=== PATIENT | female | born 1980 | race American Indian/Alaskan Native ===

== ENCOUNTER 2017-09-05 21:05 | Emergency (ER) | payer SELFPAY ==
[2017-09-05 21:30] VITALS: BP 120/76
== END 2017-09-06 03:06 | disposition left against medical advice (07) ==
LOC: ED 21:05
DX: Z53.21 Procedure and treatment not carried out due to patient leaving prior to being seen by health care provider (principal)

== ENCOUNTER 2017-11-20 08:48 | Emergency (ER) | payer SELFPAY ==
[2017-11-20 10:35] VITALS: BP 107/48
== END 2017-11-20 11:11 | disposition left against medical advice (07) ==
LOC: ED 08:48
DX: N89.8 Other specified noninflammatory disorders of vagina (principal); Z53.21 Procedure and treatment not carried out due to patient leaving prior to being seen by health care provider

== ENCOUNTER 2019-01-22 09:07 | Emergency (ER) | payer OTHER ==
--- NOTE | 2019-01-22 10:12 | Emergency Department Report ---
Minor Respiratory - HPI Chief Complaint: Sore Throat Stated Complaint: SORE THROAT/TROUBLE SWALLOWING/COUGH Time Seen by Provider: 01/22/19 10:01 Duration: 3 Days Pain Location: Throat Severity: mild Minor Respiratory: Yes Sore Throat, Yes Able to Tolerate Fluids, Yes Sick Contacts, No Rhinorrhea, No Ear Pain, No Cough, No Hemoptysis, No Chest Pain, No Shortness of Breath, No Fever Other History: Patient is a 38-year-old female comes to the ER today complaining of sore throat. She has a daughter has same symptoms. Patient states that she' s been ill since Monday and had intermittent fever since. She has no fever here and admission to the emergency room. Patient is otherwise healthy and on no medications. Patient's ABCs are intact. She is taking by mouth. Patient controls secretions. ED Review of Systems ROS: Stated complaint: SORE THROAT/TROUBLE SWALLOWING/COUGH Other details as noted in HPI Comment: All other systems reviewed and negative Constitutional: see HPI. denies: chills Eyes: denies: eye pain ENT: as per HPI, throat pain Respiratory: denies: cough Cardiovascular: denies: chest pain Endocrine: denies: excessive sweating Gastrointestinal: denies: nausea Genitourinary: denies: urgency Musculoskeletal: denies: as per HPI Skin: denies: rash Neurological: denies: weakness Psychiatric: denies: anxiety Hematological/Lymphatic: denies: easy bleeding ED Past Medical Hx - Past Medical History Previous Medical History?: No - Surgical History Past Surgical History?: No Additional Surgical History: - Family History Family history: no significant - Social History Smoking Status: Never Smoker Substance Use Type: None - Medications Home Medications: Home Medications Medication Instructions Recorded Confirmed Last Taken Type Amoxicillin [Trimox CAP] 500 mg PO BID #20 capsule 01/22/19 Unknown Rx Cetirizine HCl [ZyrTEC] 10 mg PO DAILY #30 capsule 01/22/19 Unknown Rx Minor Respiratory Exam - Exam General: Vital signs noted. No distress. Alert and acting appropriately. HEENT: Yes Pharyngeal Erythema, Yes Moist Mucous Membranes, No Pharyngeal Exudates, No Rhinorrhea, No Conjuctival Injection, No Frontal Tenderness, No Maxillary Tenderness Ear: Neither TM Bulge, Neither TM Erythema, Neither EAC Pain, Neither EAC Discharge Neck: Yes Supple, No Adenopathy Lungs: Yes Good Air Exchange, No Wheezes, No Ronchi, No Stridor, No Cough, No Labored Respirations, No Retractions, No Use of Accessory Muscles, No Other Abnormal Lung Sounds Heart: Yes Regular, No Murmur Abdomen: Yes Normal Bowel Sounds, No Tenderness, No Peritoneal Signs Skin: No Rash, No Edema Neurologic: Alert and oriented, no deficits. Musculoskeletal: Unremarkable. ED Course Vital Signs 01/22/19 09:16 Temperature 98.4 F Pulse Rate 58 L Respiratory 18 Rate Blood Pressure 114/57 O2 Sat by Pulse 100 Oximetry ED Medical Decision Making - Medical Decision Making simple urti red throat post nasal drip no fever at present abc intact taking po dc home with dc poc Vital Signs (72 hours) 01/22/19 09:16 Temperature 98.4 F Pulse Rate 58 L Respiratory 18 Rate Blood Pressure 114/57 O2 Sat by Pulse 100 Oximetry Critical care attestation.: If time is entered above; I have spent that time in minutes in the direct care of this critically ill patient, excluding procedure time. ED Disposition Clinical Impression: Pharyngitis, Allergic rhinitis Disposition: DC-01 TO HOME OR SELFCARE Is pt being admited?: No Does the pt Need Aspirin: No Condition: Stable Instructions: Pharyngitis (ED) Additional Instructions: DIET TOLERATED MEDS ORDERED FOLLOW UP PCP ACTIVITY TOLERATED MOTRIN OR TYLENOL FOR PAIN OR FEVER Referrals: [facility] [Outside] - 3-5 Days Time of Disposition: 10:11
[2019-01-22 10:37] VITALS: BP 110/60
== END 2019-01-22 10:36 | disposition home or self-care (01) ==
LOC: ED 09:07
DX: J02.9 Acute pharyngitis, unspecified (principal); J30.9 Allergic rhinitis, unspecified
CPT/HCPCS: 99282

== ENCOUNTER 2019-04-11 10:14 | Emergency (ER) | payer OTHER ==
[2019-04-11 10:30] VITALS: BP 113/69
--- NOTE | 2019-04-11 11:32 | Emergency Department Report ---
ED Female HPI - General Chief complaint: Skin Rash Stated complaint: RASH ON BACK/CHEST Source: patient Mode of arrival: Ambulatory Limitations: No Limitations - History of Present Illness Initial comments: This is a 38-year-old female who presents to the emergency room with vaginal discharge that has been intermittent for 3 months. Patient reports the discharge is foul smelling and cause pruritus or vaginal area. Patient states she has tried Monistat which increased symptoms after use. Patient states she is not concerned in STI because she is not sexually active for the past 1-1/2 years. He should also reports a rash to anterior and posterior torso for the past 2-3 years that has been intermittent. Patient states she just got insurance then called to make an appointment with the shotblast equipment operator and was unable to get an appointment. She denies pelvic pain, back pain, urinary frequency, urgency, dysuria, or hematuria. MD Complaint: vaginal discharge Onset/Timin -: month(s) Location: labia Radiation: non-radiating Severity: mild Severity scale (0 -10): 3 Quality: other (pruritus) Consistency: intermittent Improves with: none Worsens with: none Are you Now?: No Last Menstrual Period: 04/01/19 EDC: 01/06/20 Associated Symptoms: vaginal discharge. denies: vaginal bleeding, abdominal pain, nausea/vomiting, fever/chills, headaches, loss of appetite, dysuria, hematuria, rash, seizure, shortness of breath, syncope, weakness - Related Data Sexually active: No Previous Rx's Medication Instructions Recorded Last Taken Type Amoxicillin [Trimox CAP] 500 mg PO BID #20 capsule 01/22/19 Unknown Rx Cetirizine HCl [ZyrTEC] 10 mg PO DAILY #30 capsule 01/22/19 Unknown Rx methylPREDNISolone [Medrol 4MG 4 mg PO DAILY #1 tab.ds.pk 04/11/19 Unknown Rx DOSEPAK (21 tabs)] metroNIDAZOLE [Flagyl TAB] 2 gm PO ONCE #4 tab 04/11/19 Unknown Rx Allergies Allergy/AdvReac Type Severity Reaction Status Date / Time No Known Allergies Allergy Unverified 09/05/17 21:30 ED Review of Systems ROS: Stated complaint: RASH ON BACK/CHEST Other details as noted in HPI Constitutional: denies: chills, fever Respiratory: denies: cough, shortness of breath, wheezing Cardiovascular: denies: chest pain, palpitations Gastrointestinal: denies: abdominal pain, nausea, diarrhea Genitourinary: discharge. denies: urgency, dysuria, hematuria Musculoskeletal: denies: back pain, joint swelling, arthralgia Skin: denies: rash, lesions Neurological: denies: headache, weakness, paresthesias Psychiatric: denies: anxiety, depression ED Past Medical Hx - Past Medical History Previous Medical History?: No - Surgical History Past Surgical History?: Yes Additional Surgical History: - Social History Smoking Status: Current Every Day Smoker Substance Use Type: None - Medications Home Medications: Home Medications Medication Instructions Recorded Confirmed Last Taken Type Amoxicillin [Trimox CAP] 500 mg PO BID #20 capsule 01/22/19 Unknown Rx Cetirizine HCl [ZyrTEC] 10 mg PO DAILY #30 capsule 01/22/19 Unknown Rx methylPREDNISolone [Medrol 4MG 4 mg PO DAILY #1 tab.ds.pk 04/11/19 Unknown Rx DOSEPAK (21 tabs)] metroNIDAZOLE [Flagyl TAB] 2 gm PO ONCE #4 tab 04/11/19 Unknown Rx ED Physical Exam - General Limitations: No Limitations General appearance: alert, in no apparent distress, obese - Respiratory Respiratory exam: Present: normal lung sounds bilaterally. Absent: respiratory distress - Cardiovascular Cardiovascular Exam: Present: regular rate, normal rhythm. Absent: systolic murmur, diastolic murmur, rubs, gallop - GI/Abdominal GI/Abdominal exam: Present: soft, normal bowel sounds. Absent: distended, tenderness, guarding, rebound, rigid, organomegaly, mass - External exam: Present: normal external exam Speculum exam: Present: vaginal discharge (malodorous frothy greenish yellow discharge). Absent: cervical discharge, vaginal bleeding, foreign body, tissue, laceration Bi-manual exam: Present: normal bi-manual exam - Back Exam Back exam: Absent: CVA tenderness (R), CVA tenderness (L) - Neurological Exam Neurological exam: Present: alert, oriented X3 - Psychiatric Psychiatric exam: Present: normal affect, normal mood - Skin Skin exam: Present: warm, dry, intact, normal color, rash (maculopapular rash to anterior and posterior torso, blanchable). Absent: cyanosis, diaphoretic, erythema, urticaria, vesicles, petechiae, pallor, abrasion, ecchymosis ED Course Vital Signs 04/11/19 10:28 Temperature 98.3 F Pulse Rate 70 Respiratory 18 Rate Blood Pressure 113/69 O2 Sat by Pulse 100 Oximetry ED Medical Decision Making - Lab Data Lab Results 04/11/19 Range/Units 11:17 Urine Color Yellow (Yellow) Urine Turbidity Clear (Clear) Urine pH 5.0 (5.0-7.0) Ur Specific [place] 1.020 (1.003-1.030) Urine Protein <15 mg/dl (Negative) mg/dL Urine Glucose (UA) Neg (Negative) mg/dL Urine Ketones Neg (Negative) mg/dL Urine Blood Mod (Negative) Urine Nitrite Neg (Negative) Urine Bilirubin Neg (Negative) Urine Urobilinogen < 2.0 (<2.0) mg/dL Ur Leukocyte Esterase Neg (Negative) Urine WBC (Auto) 2.0 (0.0-6.0) /HPF Urine RBC (Auto) 6.0 (0.0-6.0) /HPF U Epithel Cells (Auto) 1.0 (0-13.0) /HPF Urine Mucus Few /HPF - Medical Decision Making Patient was examined by me. Vitals are stable and in no acute distress. Obtained a wet prep, gonorrhea and chlamydia, urinalysis, and urine test. The wet was positive for Trichomonas, negative yeast and clue cells. Patient will be treated for acute cervicitis. Empirically treated with Rocephin 250 mg IM and azithromycin 1 g by mouth. There is a maculopapular rash to anterior and posterior torso with suspicion of contact dermatitis of unknown cause. A referral to automatic pilot mechanic will be given to patient. Start metronidazole and Medrol Dosepak. Discharged home in stable condition. Discussed prevention options. F/U with PCP or Health Department. Critical care attestation.: If time is entered above; I have spent that time in minutes in the direct care of this critically ill patient, excluding procedure time. ED Disposition Clinical Impression: Acute cervicitis, Trichomoniasis of vagina, Vaginal discharge Contact dermatitis Qualifiers: Contact dermatitis type: allergic Contact dermatitis trigger: unspecified trigger Qualified Code(s): L23.9 - Allergic contact dermatitis, unspecified cause Disposition: - TO HOME OR SELFCARE Is pt being admited?: No Does the pt Need Aspirin: No Condition: Stable Instructions: Cervicitis (ED), Trichomoniasis (ED), Contact Dermatitis (ED) Additional Instructions: Avoid drinking alcohol while taking antibiotics and for 24 hours after completion. Continue safe sexual intercourse. I have provided you a referral to a automatic pilot mechanic for further evaluation. Follow up with Primary Care Provider or health department. Prescriptions: metroNIDAZOLE [Flagyl TAB] 2 gm PO ONCE #4 tab methylPREDNISolone [Medrol 4MG DOSEPAK (21 tabs)] 4 mg PO DAILY #1 tab.ds.pk Referrals: [facility] [Provider Group] - 3-5 Days [facility] [Primary Care Provider] - 3-5 Days [facility] [Provider Group] - 3-5 Days Forms: STI Treatment and Prevention Time of Disposition: 12:28
[2019-04-11 11:52] LABS: Bilirubin,Urine NEG (Negative); Blood,Urine MOD (Negative); Color,Urine Yellow (Yellow); Mucus,Urine FEW /HPF; Protein,Urine <15 mg/dL mg/dL (Negative); Urobilinogen,Urine < 2.0 mg/dL (<2.0)
[2019-04-11] MEDS ORDERED: ROCEPHIN IM ONE (12:27)
[2019-04-11] MEDS ORDERED: XYLOCAINE 1% MPF 5 mL INFILTRATI ONE (12:27)
[2019-04-11] MEDS ORDERED: ZITHROMAX PO ONE (12:28)
== END 2019-04-11 13:01 | disposition home or self-care (01) ==
LOC: ED 10:14
DX: N72 Inflammatory disease of cervix uteri (principal); A59.01 Trichomonal vulvovaginitis; L23.9 Allergic contact dermatitis, unspecified cause; F17.200 Nicotine dependence, unspecified, uncomplicated
CPT/HCPCS: 81001; 87210; 87591; J0696; 96372

== ENCOUNTER 2019-06-10 10:25 | Emergency (ER) | payer OTHER ==
[2019-06-10 10:38] VITALS: BP 124/68
[2019-06-10] MEDS ORDERED: IBUPROFEN PO ONE (11:55)
--- NOTE | 2019-06-10 12:16 | Emergency Department Report ---
ED General Adult HPI - General Chief complaint: Weakness Stated complaint: STREP THROAT Time Seen by Provider: 06/10/19 11:39 Source: patient Mode of arrival: Ambulatory Limitations: No Limitations - History of Present Illness Initial comments: 39-year-old -[place] female presents to the emergency room stating that she just feels weak having nasal congestion chest pain with cough and has not had much of an appetite in the last 2 days. Patient reports that she had a sore throat yesterday but none today. Patient's last menstrual. Was 06/02/2019. Patient has no past medical history. Onset/Timin Location: chest Radiation: non-radiation Severity scale (0 -10): 6 Consistency: intermittent Improves with: none Worsens with: other (coughing) Associated Symptoms: cough, loss of appetite, weakness, other (vital congestion chest congestion). denies: fever/chills, nausea/vomiting - Related Data Previous Rx's Medication Instructions Recorded Last Taken Type Amoxicillin [Trimox CAP] 500 mg PO BID #20 capsule 01/22/19 Unknown Rx Cetirizine HCl [ZyrTEC] 10 mg PO DAILY #30 capsule 01/22/19 Unknown Rx methylPREDNISolone [Medrol 4MG 4 mg PO DAILY #1 tab.ds.pk 04/11/19 Unknown Rx DOSEPAK (21 tabs)] metroNIDAZOLE [Flagyl TAB] 2 gm PO ONCE #4 tab 04/11/19 Unknown Rx Cetirizine HCl [Zyrtec 10mg tab] 10 mg PO QDAY #15 tablet 06/10/19 Unknown Rx Fluticasone Furoate [Flonase 9.9 ml NS QDAY #1 spray.susp 06/10/19 Unknown Rx Sensimist] Phenylephrine HCl [Sudafed PE] 10 mg PO Q6H PRN #20 tablet 06/10/19 Unknown Rx Allergies Allergy/AdvReac Type Severity Reaction Status Date / Time No Known Allergies Allergy Unverified 09/05/17 21:30 ED Review of Systems ROS: Stated complaint: STREP THROAT Other details as noted in HPI Comment: All other systems reviewed and negative ENT: throat pain (yesterday) Respiratory: cough ED Past Medical Hx - Past Medical History Previous Medical History?: No Hx Hypertension: No - Surgical History Past Surgical History?: Yes Additional Surgical History: - Social History Smoking Status: Never Smoker Substance Use Type: None - Medications Home Medications: Home Medications Medication Instructions Recorded Confirmed Last Taken Type Amoxicillin [Trimox CAP] 500 mg PO BID #20 capsule 01/22/19 Unknown Rx Cetirizine HCl [ZyrTEC] 10 mg PO DAILY #30 capsule 01/22/19 Unknown Rx methylPREDNISolone [Medrol 4MG 4 mg PO DAILY #1 tab.ds.pk 04/11/19 Unknown Rx DOSEPAK (21 tabs)] metroNIDAZOLE [Flagyl TAB] 2 gm PO ONCE #4 tab 04/11/19 Unknown Rx Cetirizine HCl [Zyrtec 10mg tab] 10 mg PO QDAY #15 tablet 06/10/19 Unknown Rx Fluticasone Furoate [Flonase 9.9 ml NS QDAY #1 spray.susp 06/10/19 Unknown Rx Sensimist] Phenylephrine HCl [Sudafed PE] 10 mg PO Q6H PRN #20 tablet 06/10/19 Unknown Rx ED Physical Exam - General Limitations: No Limitations ED Course Vital Signs 06/10/19 10:37 Temperature 98.4 F Pulse Rate 79 Respiratory 16 Rate Blood Pressure 124/68 [Left] O2 Sat by Pulse 100 Oximetry ED Medical Decision Making - Radiology Data Radiology results: report reviewed Patient: LAKESHA COOK MR#: [id number] : 1980 Acct:[id number] Age/Sex: 39 / F ADM Date: 06/10/19 Loc: ED Attending Dr: Ordering Physician: AUDRA SHARIF Date of Service: 06/10/19 Procedure(s): XR chest routine 2V Accession Number(s): [id number] cc: AUDRA SHARIF Fluoro Time In Minutes: CHEST 2 VIEWS INDICATION / CLINICAL INFORMATION: cough and weakness. COMPARISON: None available. FINDINGS: SUPPORT DEVICES: None. HEART / MEDIASTINUM: No significant abnormality. LUNGS / PLEURA: No significant pulmonary or pleural abnormality. No pneumothorax. ADDITIONAL FINDINGS: No significant additional findings. IMPRESSION: 1. No acute findings. Signer Name: Alberto Hope MD Signed: 06/10/2019 12:51 PM Workstation Name: [id number] Transcribed By: GA Dictated By: Alberto Hope MD Electronically Authenticated By: Alberto Hope MD Signed Date/Time: 06/10/191250 DD/ 50 TD/TT: - Medical Decision Making 39-year-old -[place] female presents to the emergency room stating that she just feels weak having nasal congestion chest pain with cough and has not had much of an appetite in the last 2 days. Patient reports that she had a sore throat yesterday but none today. Patient's last menstrual. Was 06/02/2019. Patient has no past medical history. X-rays are negative for any acute findings. These take [id number] Zyrtec Flonase and Sudafed. Critical care attestation.: If time is entered above; I have spent that time in minutes in the direct care of this critically ill patient, excluding procedure time. ED Disposition Clinical Impression: Viral syndrome Disposition: DC-01 TO HOME OR SELFCARE Is pt being admited?: No Does the pt Need Aspirin: No Condition: Stable Instructions: Viral Syndrome (ED) Additional Instructions: Chest x-ray negative for any acute abnormalities. Take medications as prescribed. Increase her fluid intake while taking medications. Follow up with her primary care provider if his symptoms persist or gets worse. Prescriptions: Fluticasone Furoate [Flonase Sensimist] 9.9 ml NS QDAY #1 spray.susp Phenylephrine HCl [Sudafed PE] 10 mg PO Q6H PRN #20 tablet PRN Reason: Nasal Congestion Cetirizine HCl [Zyrtec 10mg tab] 10 mg PO QDAY #15 tablet Referrals: [facility] [Other] - 3-5 Days Forms: Work/School Release Form(ED)
--- NOTE | 2019-06-10 12:56 | XRay Report ---
CHEST 2 VIEWS INDICATION / CLINICAL INFORMATION: cough and weakness. COMPARISON: None available. FINDINGS: SUPPORT DEVICES: None. HEART / MEDIASTINUM: No significant abnormality. LUNGS / PLEURA: No significant pulmonary or pleural abnormality. No pneumothorax. ADDITIONAL FINDINGS: No significant additional findings. IMPRESSION: 1. No acute findings. Signer Name: Alberto Hope MD Signed: 06/10/2019 12:51 PM Workstation Name: [id number]
== END 2019-06-10 13:34 | disposition home or self-care (01) ==
LOC: ED 10:25
DX: B34.9 Viral infection, unspecified (principal); Z79.899 Other long term (current) drug therapy
CPT/HCPCS: 71046

== ENCOUNTER 2022-03-26 13:24 | Emergency (ER) | payer OTHER ==
--- NOTE | 2022-03-26 14:57 | Emergency Department Report ---
HPI - General Chief Complaint: Altered Mental Status Time Seen by Provider: 03/26/22 14:04 - HPI HPI: Room 22 Patient is a 41-year-old female presenting with a chief complaint of altered mental status. Patient was initially found vomiting in her car by bystanders. EMS was called and reportedly found the patient unresponsive. Patient was administered Narcan 2 mg by EMS but there is no response from the patient. The patient was found to be bradycardic with heart rate in 30s and subsequently the patient was administered 0.5 mg of atropine prior to transporting the patient to the ED. In the ED the patient is slow to respond but answers questions appropriately. Patient states he has had an intermittent diffuse headache for the past 2 weeks. Patient denies any preceding trauma. The patient states she remembers having cramping in her hands and face while she was in her car. Patient denies suicidal ideation, patient denies history of cough, shortness of breath or sneezing. Patient states she tested positive for COVID 3 days ago. The patient states her daughter was initially sick with COVID. ED Past Medical Hx - Past Medical History Previous Medical History?: No - Surgical History Additional Surgical History: - Family History Family history: no significant - Social History Smoking Status: Current Every Day Smoker (1/4 pack/day) Substance Use Type: None (Denies illicit drug use) - Medications Home Medications: Home Medications Medication Instructions Recorded Confirmed Last Taken Type Amoxicillin [Trimox CAP] 500 mg PO BID #20 capsule 01/22/19 Unknown Rx Cetirizine HCl [ZyrTEC] 10 mg PO DAILY #30 capsule 01/22/19 Unknown Rx methylPREDNISolone [Medrol 4MG 4 mg PO DAILY #1 tab.ds.pk 04/11/19 Unknown Rx DOSEPAK (21 tabs)] metroNIDAZOLE [Flagyl TAB] 2 gm PO ONCE #4 tab 04/11/19 Unknown Rx Cetirizine HCl [Zyrtec 10mg tab] 10 mg PO QDAY #15 tablet 06/10/19 Unknown Rx Fluticasone Furoate [Flonase 9.9 ml NS QDAY #1 spray.susp 06/10/19 Unknown Rx Sensimist] Phenylephrine HCl [Sudafed PE] 10 mg PO Q6H PRN #20 tablet 06/10/19 Unknown Rx Butalb/Acetamin/Caff 50-325-40 2 tab PO Q8HR PRN #20 tablet 03/26/22 Unknown Rx [Fioricet 50-325-40] Ondansetron [Zofran ODT TAB] 8 mg PO Q8HR #20 tab.rapdis 03/26/22 Unknown Rx ED Review of Systems ROS: Stated complaint: UNRESPONSIVE Other details as noted in HPI Constitutional: no symptoms reported Eyes: denies: eye pain ENT: denies: throat pain Respiratory: denies: cough, shortness of breath Cardiovascular: denies: chest pain Endocrine: no symptoms reported Gastrointestinal: nausea, vomiting Genitourinary: denies: dysuria Musculoskeletal: denies: back pain Neurological: headache Physical Exam - Physical Exam Vital Signs: Vital Signs 03/26/22 13:45 Pulse Rate 66 Respiratory 16 Rate Blood Pressure 132/60 [Left] O2 Sat by Pulse 98 Oximetry Physical Exam: GENERAL: The patient is well-developed well-nourished female lying on stretcher, slow to respond but answers. [] HEENT: Normocephalic. Atraumatic. Extraocular motions are intact. Patient has moist mucous membranes. NECK: Supple. No meningitic signs are noted. Trachea midline CHEST/LUNGS: Clear to auscultation. There is no respiratory distress noted. HEART/CARDIOVASCULAR: Regular. There is no tachycardia. There is no gallop rub or murmur. ABDOMEN: Abdomen is soft, nontender. Patient has normal bowel sounds. There is no abdominal distention. SKIN: There is no rash. There is no edema. There is no diaphoresis. NEURO: The patient is awake, alert, and oriented. The patient is cooperative. The patient has no focal neurologic deficits. The patient has normal speech. Cranial nerves II through XII grossly intact. MUSCULOSKELETAL: There is no evidence of acute injury. ED Course Vital Signs 03/26/22 13:45 Pulse Rate 66 Respiratory 16 Rate Blood Pressure 132/60 [Left] O2 Sat by Pulse 98 Oximetry - Reevaluation(s) Reevaluation #1: 03/26/22 18:26 Patient alert and oriented x4. Patient states she has been having daily headaches for the past 2 to 3 months but has not yet followed up with her primary physician. The patient states today she recalls having a headache and c ramping in her face and hands and her next memory is waking up in her car in the emergency department. Patient states she feels a lot better now but still has a headache and gives a score of 6/10. ED Medical Decision Making - Lab Data Result diagrams: 03/26/22 15:06 03/26/22 15:06 Laboratory Tests 03/26/22 03/26/22 03/26/22 15:06 15:06 15:06 WBC 8.8 RBC 4.37 Hgb 14.2 Hct 41.9 MCV 96 MCH 33 H MCHC 34 RDW 12.8 L Plt Count 159 Lymph % (Auto) 8.0 L [place] % (Auto) 7.3 Eos % (Auto) 0.0 Baso % (Auto) 0.2 Lymph # (Auto) 0.7 L [place] # (Auto) 0.6 Eos # (Auto) 0.0 Baso # (Auto) 0.0 Seg Neutrophils % 84.5 H Seg Neutrophils # 7.4 PT 13.6 INR 0.94 APTT 26.5 Sodium 139 Potassium 3.1 L Chloride 100.0 Carbon Dioxide 25 Anion Gap 17 BUN 15 Creatinine 0.6 Estimated GFR > 60 BUN/Creatinine Ratio 25 Glucose 118 H Calcium 9.6 Total Bilirubin 1.00 AST 25 ALT 19 Alkaline Phosphatase 57 Ammonia Total Creatine Kinase CK-MB (CK-2) CK-MB (CK-2) Rel Index Troponin T Total Protein 7.8 Albumin 4.5 Albumin/Globulin Ratio 1.4 TSH Free T4 HCG, Qual Urine Color Urine Turbidity Urine pH Ur Specific [place] Urine Protein Urine Glucose (UA) Urine Ketones Urine Blood Urine Nitrite Urine Bilirubin Urine Urobilinogen Ur Leukocyte Esterase Urine WBC (Auto) Urine RBC (Auto) U Epithel Cells (Auto) Urine Mucus Urine Yeast (Budding) Salicylates Urine Opiates Screen Urine Methadone Screen Acetaminophen Ur Barbiturates Screen Ur Phencyclidine Scrn Ur Amphetamines Screen U Benzodiazepines Scrn Urine Cocaine Screen Plasma/Serum Alcohol 03/26/22 03/26/22 03/26/22 15:06 15:06 15:06 WBC RBC Hgb Hct MCV MCH MCHC RDW Plt Count Lymph % (Auto) [place] % (Auto) Eos % (Auto) Baso % (Auto) Lymph # (Auto) [place] # (Auto) Eos # (Auto) Baso # (Auto) Seg Neutrophils % Seg Neutrophils # PT INR APTT Sodium Potassium Chloride Carbon Dioxide Anion Gap BUN Creatinine Estimated GFR BUN/Creatinine Ratio Glucose Calcium Total Bilirubin AST ALT Alkaline Phosphatase Ammonia 18.0 L Total Creatine Kinase 271 H CK-MB (CK-2) 3.7 CK-MB (CK-2) Rel Index 1.3 Troponin T < 0.010 Total Protein Albumin Albumin/Globulin Ratio TSH 0.946 Free T4 1.60 H HCG, Qual Urine Color Urine Turbidity Urine pH Ur Specific [place] Urine Protein Urine Glucose (UA) Urine Ketones Urine Blood Urine Nitrite Urine Bilirubin Urine Urobilinogen Ur Leukocyte Esterase Urine WBC (Auto) Urine RBC (Auto) U Epithel Cells (Auto) Urine Mucus Urine Yeast (Budding) Salicylates Urine Opiates Screen Urine Methadone Screen Acetaminophen Ur Barbiturates Screen Ur Phencyclidine Scrn Ur Amphetamines Screen U Benzodiazepines Scrn Urine Cocaine Screen Plasma/Serum Alcohol 03/26/22 03/26/22 03/26/22 15:06 15:06 15:06 WBC RBC Hgb Hct MCV MCH MCHC RDW Plt Count Lymph % (Auto) [place] % (Auto) Eos % (Auto) Baso % (Auto) Lymph # (Auto) [place] # (Auto) Eos # (Auto) Baso # (Auto) Seg Neutrophils % Seg Neutrophils # PT INR APTT Sodium Potassium Chloride Carbon Dioxide Anion Gap BUN Creatinine Estimated GFR BUN/Creatinine Ratio Glucose Calcium Total Bilirubin AST ALT Alkaline Phosphatase Ammonia Total Creatine Kinase CK-MB (CK-2) CK-MB (CK-2) Rel Index Troponin T Total Protein Albumin Albumin/Globulin Ratio TSH Free T4 HCG, Qual Negative Urine Color Urine Turbidity Urine pH Ur Specific [place] Urine Protein Urine Glucose (UA) Urine Ketones Urine Blood Urine Nitrite Urine Bilirubin Urine Urobilinogen Ur Leukocyte Esterase Urine WBC (Auto) Urine RBC (Auto) U Epithel Cells (Auto) Urine Mucus Urine Yeast (Budding) Salicylates < 0.3 L Urine Opiates Screen Urine Methadone Screen Acetaminophen 5.0 L Ur Barbiturates Screen Ur Phencyclidine Scrn Ur Amphetamines Screen U Benzodiazepines Scrn Urine Cocaine Screen Plasma/Serum Alcohol 03/26/22 03/26/22 03/26/22 15:06 16:21 16:21 WBC RBC Hgb Hct MCV MCH MCHC RDW Plt Count Lymph % (Auto) [place] % (Auto) Eos % (Auto) Baso % (Auto) Lymph # (Auto) [place] # (Auto) Eos # (Auto) Baso # (Auto) Seg Neutrophils % Seg Neutrophils # PT INR APTT Sodium Potassium Chloride Carbon Dioxide Anion Gap BUN Creatinine Estimated GFR BUN/Creatinine Ratio Glucose Calcium Total Bilirubin AST ALT Alkaline Phosphatase Ammonia Total Creatine Kinase CK-MB (CK-2) CK-MB (CK-2) Rel Index Troponin T Total Protein Albumin Albumin/Globulin Ratio TSH Free T4 HCG, Qual Urine Color [place] Urine Turbidity Cloudy Urine pH 5.0 Ur Specific [place] 1.031 H Urine Protein 100 mg/dl Urine Glucose (UA) 50 Urine Ketones 80 Urine Blood Sm Urine Nitrite Neg Urine Bilirubin Neg Urine Urobilinogen 4.0 Ur Leukocyte Esterase Neg Urine WBC (Auto) 8.0 H Urine RBC (Auto) 9.0 U Epithel Cells (Auto) 5.0 Urine Mucus 3+ Urine Yeast (Budding) Few Salicylates Urine Opiates Screen Negative Urine Methadone Screen Negative Acetaminophen Ur Barbiturates Screen Negative Ur Phencyclidine Scrn Negative Ur Amphetamines Screen Negative U Benzodiazepines Scrn Negative Urine Cocaine Screen Negative Plasma/Serum Alcohol < 0.01 - EKG Data -: EKG Interpreted by Ne EKG shows normal: sinus rhythm, axis Rate: normal - EKG Data When compared to previous EKG there are: previous EKG unavailable Interpretation: normal EKG - Radiology Data Radiology results: report reviewed (CT head), image reviewed (CT head) [facility] [address] [place] [address] Cat Scan Report Signed Patient: LAKESHA COOK MR#: [id number] : 1980 Acct:[id number] Age/Sex: 41 / F ADM Date: 03/26/22 Loc: ED Attending Dr: Ordering Physician: NOLBERTO CORDOBA MD Date of Service: 03/26/22 Procedure(s): CT head/brain wo con Accession Number(s): [id number] cc: NOLBERTO CORDOBA MD CT HEAD WITHOUT CONTRAST INDICATION / CLINICAL INFORMATION: Altered Mental Status, Headache. TECHNIQUE: All CT scans at this location are performed using CT dose reduction for ALARA by means of automated exposure control. COMPARISON: None available. FINDINGS: HEMORRHAGE: None. EXTRA-AXIAL SPACES: Normal in size and morphology for the patient's age. VENTRICULAR SYSTEM: Normal in size and morphology for the patient's age. CEREBRAL PARENCHYMA: No significant abnormality. No acute territorial infarct. MIDLINE SHIFT / HERNIATION: None. CEREBELLUM / BRAINSTEM: No significant abnormality. ORBITS: Normal as visualized. SOFT TISSUES: No significant abnormality. SKULL: No significant abnormality. PARANASAL SINUSES / MASTOID AIR CELLS: Normal as visualized. AD DITIONAL FINDINGS: None. IMPRESSION: 1. No acute intracranial abnormality. Signer Name: Catrachito Noel MD Signed: 03/26/2022 3:01 PM Workstation Name: [id number] Transcribed By: DT Dictated By: Jose De Jesus Noel MD Electronically Authenticated By: Jose De Jesus Noel MD Signed Date/Time: 03/26/22 1501 DD/ 1500 TD/TT: - Differential Diagnosis ICH, headache, migraine, substance abuse, metabolic encephalopathy, COVID Critical care attestation.: If time is entered above; I have spent that time in minutes in the direct care of this critically ill patient, excluding procedure time. ED Disposition Clinical Impression: Headache, Vasovagal syncope, Hypokalemia Disposition: 01 HOME / SELF CARE / HOMELESS Is pt being admited?: No Does the pt Need Aspirin: No Condition: Stable Instructions: Syncope (ED), Hypokalemia, Syncope, [id number], General Head ache Without Cause, [id number] Additional Instructions: Return to the emergency department should you develop worsening symptoms, inability to tolerate food or liquids, high fever or any other concerns Prescriptions: Butalb/Acetamin/Caff 50-325-40 [Fioricet 50-325-40] 2 tab PO Q8HR PRN #20 tablet PRN Reason: Headache Ondansetron [Zofran ODT TAB] 8 mg PO Q8HR #20 tab.rapdis Referrals: SUMIT WHITT [Other] - 3-5 Days Time of Disposition: 18:28
--- NOTE | 2022-03-26 15:06 | Cat Scan Report ---
CT HEAD WITHOUT CONTRAST INDICATION / CLINICAL INFORMATION: Altered Mental Status, Headache. TECHNIQUE: All CT scans at this location are performed using CT dose reduction for ALARA by means of automated exposure control. COMPARISON: None available. FINDINGS: HEMORRHAGE: None. EXTRA-AXIAL SPACES: Normal in size and morphology for the patient's age. VENTRICULAR SYSTEM: Normal in size and morphology for the patient's age. CEREBRAL PARENCHYMA: No significant abnormality. No acute territorial infarct. MIDLINE SHIFT / HERNIATION: None. CEREBELLUM / BRAINSTEM: No significant abnormality. ORBITS: Normal as visualized. SOFT TISSUES: No significant abnormality. SKULL: No significant abnormality. PARANASAL SINUSES / MASTOID AIR CELLS: Normal as visualized. ADDITIONAL FINDINGS: None. IMPRESSION: 1. No acute intracranial abnormality. Signer Name: Catrachito Noel MD Signed: 03/26/2022 3:01 PM Workstation Name: [id number]
[2022-03-26 15:43] LABS: Basophils % (Auto) 0.2 % (0.0-1.8); Hematocrit 41.9 % (30.3-42.9); Hemoglobin 14.2 gm/dl (10.1-14.3); Lymphocytes # (Auto) 0.7 K/mm3 (1.2-5.4); Mean Corpuscular HGB Conc 34 % (30-34); Mean Corpuscular Volume 96 fl (79-97); Monocytes # (Auto) 0.6 K/mm3 (0.0-0.8); Monocytes % (Auto) 7.3 % (0.0-7.3); Platelet Count 159 K/mm3 (140-440); Red Blood Count 4.37 M/mm3 (3.65-5.03); Red Cell Distribution Width 12.8 % (13.2-15.2)
[2022-03-26 15:55] LABS: INR 0.94 (0.87-1.13)
[2022-03-26 15:56] LABS: Partial Thromboplastin Time 26.5 Sec. (24.2-36.6)
[2022-03-26 16:00] LABS: Alanine Aminotransferase 19 units/L (7-56); Albumin 4.5 g/dL (3.9-5); Blood Urea Nitrogen 15 mg/dL (7-17); Calcium 9.6 mg/dL (8.4-10.2); Hemolysis Index 2
[2022-03-26 16:05] LABS: BUN/Creatinine Ratio 25
[2022-03-26] MEDS ORDERED: POTASSIUM CHLORIDE ER 20 MEQ TAB PO ONE (16:11)
[2022-03-26] MEDS ORDERED: SODIUM CHLORIDE 0.9% 1000 ML 1,000 ML IV ONE (16:17)
[2022-03-26 16:18] LABS: Free T4 (Free Thyroxine) 1.6 ng/dL (0.76-1.46)
[2022-03-26 16:44] LABS: Creatine Kinase MB 3.7 ng/mL (0.0-4.0)
[2022-03-26 17:49] LABS: Bilirubin,Urine NEG (Negative); Blood,Urine SM (Negative); Color,Urine Amber (Yellow); Mucus,Urine 3+ /HPF
[2022-03-26 17:55] LABS: Amphetamine Screen,Urine Negative; Benzodiazepines Screen,Urine Negative; Cocaine Screen,Urine Negative; Methadone Screen,Urine Negative; Opiate Screen,Urine Negative
[2022-03-26 18:13] LABS: Cannabinoid Screen,Urine Positive
[2022-03-26] MEDS ORDERED: BUTALB/ACETAMINOPHEN/CAFFEINE TAB PO ONE (18:21)
[2022-03-26 19:13] VITALS: BP 110/57
--- NOTE | 2022-03-27 21:32 | Electrocardiograph Report ---
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
== END 2022-03-26 19:13 | disposition home or self-care (01) ==
LOC: ED 13:24
DX: R51.9 Headache, unspecified (principal); R55 Syncope and collapse; E87.6 Hypokalemia; F17.200 Nicotine dependence, unspecified, uncomplicated
CPT/HCPCS: 36415; 70450; 80053; 80307; 81001; 82140; 82550; 82553; 84439; 84443; 84484; 84703; 85025; 85610; 85730; 93005; 96360; 99284; J7030; 80320; G0480